=== PATIENT | female | born 1990 | race American Indian/Alaskan Native ===

== ENCOUNTER 2018-02-03 12:45 | Emergency (ER) | payer SELFPAY ==
[2018-02-03 12:56] VITALS: BP 122/73
[2018-02-03 13:49] LABS: Bilirubin,Urine NEG (Negative); Blood,Urine NEG (Negative); Color,Urine Yellow (Yellow); Mucus,Urine FEW /HPF; Protein,Urine <15 mg/dL mg/dL (Negative)
[2018-02-03 13:51] LABS: HCG Qualitative,Urine Positive (Negative)
--- NOTE | 2018-02-03 14:17 | Emergency Department Report ---
ED Medical Clearance HPI - General Chief complaint: Medical Clearance Stated complaint: NATIOUS/TOOK TEST Time Seen by Provider: 02/03/18 13:59 Source: patient Mode of arrival: Ambulatory - History of Present Illness Initial comments: This is a 27-year-old female nontoxic while in appearance with no signs of distress presents to the ER for a test. Patient stated that last week she had nausea with vomiting and has missed her period. Patient stated that her last measure cycle was on 01/05/2018. Patient states she had positive test at home. Patient denies any abdominal pain, vaginal bleeding, urinary symptoms, fever, chills, nausea, vomiting, headache, stiff neck, numbness or tingling. Patient denies any significant past medical history. Patient states she is currently asymptomatic and just wants a test. Alledged Intoxication: No Compliant with Home Medications: No Traumatic Symptoms: denies traumatic injury Associated Symptoms: denies other symptoms. denies: chest pain, shortness of breath, palpitations, diaphoresis, confusion, cough, fever/chills, headaches, anorexia, malaise, nausea/vomiting, rash, seizure, syncope, weakness Treatments Prior to Arrival: none Home medications: Previous Rx's Medication Instructions Recorded Last Taken Type Hyoscyamine Subl [Levsin Sl] 0.125 mg SL Q4HR PRN #12 tablet 06/12/13 Unknown Rx Ondansetron [Zofran] 4 mg PO Q6HR PRN #12 tablet 06/12/13 Unknown Rx Metoclopramide [Reglan] 10 mg PO TID PRN #30 tab 02/03/18 Unknown Rx 21/Iron Fu/Folic Acid 1 each PO DAILY #30 tablet 02/03/18 Unknown Rx [ Complete Caplet] Allergies/Adverse reactions: Allergies Allergy/AdvReac Type Severity Reaction Status Date / Time cefaclor [From Ceclor] Allergy Rash Verified 02/03/18 12:52 metronidazole [From Flagyl] Allergy Rash Verified 02/03/18 12:52 Metronidazole HCl Allergy Rash Verified 02/03/18 12:52 [From Flagyl] Penicillins Allergy Rash Verified 02/03/18 12:52 Sulfa (Sulfonamide Allergy Rash Verified 02/03/18 12:52 Antibiotics) ED Review of Systems ROS: Stated complaint: NATIOUS/TOOK TEST Other details as noted in HPI Constitutional: denies: chills, fever Eyes: denies: eye pain, eye discharge, vision change ENT: denies: ear pain, throat pain Respiratory: denies: cough, shortness of breath, wheezing Cardiovascular: denies: chest pain, palpitations Endocrine: no symptoms reported Gastrointestinal: denies: abdominal pain, nausea, diarrhea Genitourinary: denies: urgency, dysuria, discharge Musculoskeletal: denies: back pain, joint swelling, arthralgia Skin: denies: rash, lesions Neurological: denies: headache, weakness, paresthesias Psychiatric: denies: anxiety, depression Hematological/Lymphatic: denies: easy bleeding, easy bruising ED Past Medical Hx - Past Medical History Previous Medical History?: No - Surgical History Past Surgical History?: No - Social History Smoking Status: Never Smoker Substance Use Type: None - Medications Home Medications: Home Medications Medication Instructions Recorded Confirmed Last Taken Type Hyoscyamine Subl [Levsin Sl] 0.125 mg SL Q4HR PRN #12 tablet 06/12/13 Unknown Rx Ondansetron [Zofran] 4 mg PO Q6HR PRN #12 tablet 06/12/13 Unknown Rx Metoclopramide [Reglan] 10 mg PO TID PRN #30 tab 02/03/18 Unknown Rx 21/Iron Fu/Folic Acid 1 each PO DAILY #30 tablet 02/03/18 Unknown Rx [ Complete Caplet] ED Physical Exam - General Limitations: No Limitations General appearance: alert, in no apparent distress - Head Head exam: Present: atraumatic, normocephalic - Eye Eye exam: Present: normal appearance - ENT ENT exam: Present: mucous membranes moist - Neck Neck exam: Present: normal inspection - Respiratory Respiratory exam: Present: normal lung sounds bilaterally. Absent: respiratory distress - Cardiovascular Cardiovascular Exam: Present: regular rate, normal rhythm. Absent: systolic murmur, diastolic murmur, rubs, gallop - GI/Abdominal GI/Abdominal exam: Present: soft, normal bowel sounds - Extremities Exam Extremities exam: Present: normal inspection - Back Exam Back exam: Present: normal inspection - Neurological Exam Neurological exam: Present: alert, oriented X3 - Psychiatric Psychiatric exam: Present: normal affect, normal mood - Skin Skin exam: Present: warm, dry, intact, normal color. Absent: rash ED Course Vital Signs 02/03/18 12:51 Temperature 99.4 F Pulse Rate 89 Respiratory 15 Rate Blood Pressure 122/73 O2 Sat by Pulse 99 Oximetry - Reevaluation(s) Reevaluation #1: 02/03/18 14:15 Patient is speaking in full sentences with no signs of distress noted. ED Disposition Clinical Impression: Positive test Disposition: [id number] TO HOME OR SELFCARE Is pt being admited?: No Does the pt Need Aspirin: No Condition: Stable Instructions: (ED) Additional Instructions: Follow-up with a [facility] doctor in 3-5 days or if symptoms worsen and continue return to emergency room as soon as possible. Prescriptions: Metoclopramide [Reglan] 10 mg PO TID PRN #30 tab PRN Reason: Nausea 21/Iron Fu/Folic Acid [ Complete Caplet] 1 each PO DAILY #30 tablet Referrals: PRIMARY CAREMD [Primary Care Provider] - 3-5 Days ROSALBA DREW MD [Staff Physician] - 3-5 Days [facility] [Provider Group] - 3-5 Days Forms: Work/School Release Form(ED)
== END 2018-02-03 14:25 | disposition home or self-care (01) ==
LOC: ED 12:45
DX: Z32.01 Encounter for pregnancy test, result positive (principal); Z88.0 Allergy status to penicillin; Z88.1 Allergy status to other antibiotic agents; Z88.8 Allergy status to other drugs, medicaments and biological substances
CPT/HCPCS: 81001; 81025; 99283